=== PATIENT | female | born 1970 | race Caucasian/White ===

== ENCOUNTER 2017-06-22 13:13 | Emergency (ER) | payer OTHER ==
[~2017-06-22] VITALS: Wt 87.1 kg
[~2017-06-22 13:13] MED LIST: HYDROCODONE BIT1 T11 PO; PAXIL20 M1 PO; PREDNISONE50 MG PO; VICODIN 5-3001 EACH PO; XANAX0.25 MG PO; ZITHROMAX250 MG PO
== END 2017-06-22 14:46 | disposition home or self-care (01) ==
LOC: ED 13:13
DX: Z00.00 Encounter for general adult medical examination without abnormal findings (principal); Z88.1 Allergy status to other antibiotic agents; Z88.0 Allergy status to penicillin; Z91.013 Allergy to seafood; F17.210 Nicotine dependence, cigarettes, uncomplicated; Z72.89 Other problems related to lifestyle

== ENCOUNTER → 2018-03-12 | Outpatient (CLI) | payer OTHER | END | disposition home or self-care (01) | LOC: MAMMO 16:25 | DX: Z12.31 Encounter for screening mammogram for malignant neoplasm of breast (principal) ==

== ENCOUNTER 2018-05-26 16:52 | Emergency (ER) | payer OTHER ==
[~2018-05-26] VITALS: Ht 175.2 cm; Wt 90.7 kg
[2018-05-26] MEDS ORDERED: MEDROL DOSEPAK4 MG PO (17:22)
== END 2018-05-26 17:28 | disposition home or self-care (01) ==
LOC: ED 16:52
DX: G89.29 Other chronic pain (principal); M54.5 Low back pain; Z88.0 Allergy status to penicillin; Z88.1 Allergy status to other antibiotic agents; Z88.8 Allergy status to other drugs, medicaments and biological substances; Z91.013 Allergy to seafood; Z79.899 Other long term (current) drug therapy

== ENCOUNTER 2020-03-28 16:58 | Emergency (ER) | payer SELFPAY ==
[~2020-03-28] VITALS: Ht 368.3 cm; Wt 86.2 kg
[~2020-03-28 16:58] MED LIST changes: +MEDROL DOSEPAK4 MG PO
== END 2020-03-28 17:25 | disposition left against medical advice (07) ==
LOC: ED 16:58
DX: M54.5 Low back pain (principal); Z88.0 Allergy status to penicillin; Z88.2 Allergy status to sulfonamides; Z88.8 Allergy status to other drugs, medicaments and biological substances; Z91.013 Allergy to seafood; Z53.29 Procedure and treatment not carried out because of patient's decision for other reasons

== ENCOUNTER → 2020-03-29 | Outpatient (CLI) | payer SELFPAY | END | disposition home or self-care (01) | LOC: RAD 10:23 | DX: M41.84 Other forms of scoliosis, thoracic region (principal); M25.78 Osteophyte, vertebrae ==

== ENCOUNTER 2020-05-10 09:58 | Emergency (ER) | payer SELFPAY ==
[~2020-05-10] VITALS: Ht 172.7 cm; Wt 86.2 kg
== END 2020-05-10 12:09 | disposition home or self-care (01) ==
LOC: ED 09:58
DX: S92.001A Unspecified fracture of right calcaneus, initial encounter for closed fracture (principal); F32.9 Major depressive disorder, single episode, unspecified; F41.9 Anxiety disorder, unspecified; I10 Essential (primary) hypertension; F17.200 Nicotine dependence, unspecified, uncomplicated; Z88.0 Allergy status to penicillin; Z88.8 Allergy status to other drugs, medicaments and biological substances; Z88.2 Allergy status to sulfonamides; Z79.899 Other long term (current) drug therapy; X58.XXXA Exposure to other specified factors, initial encounter; Y93.89 Activity, other specified; Y92.89 Other specified places as the place of occurrence of the external cause; Y99.8 Other external cause status

== ENCOUNTER 2021-07-14 12:37 | Emergency (ER) | payer SELFPAY ==
[~2021-07-14] VITALS: Ht 172.7 cm; Wt 86.2 kg
== END 2021-07-14 16:32 | disposition left against medical advice (07) ==
LOC: ED 12:37
DX: R51.9 Headache, unspecified (principal); R05.9 Cough, unspecified; R09.81 Nasal congestion; Z53.21 Procedure and treatment not carried out due to patient leaving prior to being seen by health care provider

== ENCOUNTER → 2021-07-14 | Outpatient (CLI) | payer OTHER | END | disposition home or self-care (01) | LOC: COVID19 16:45 | PROVIDERS: ATTEND Internal Medicine | DX: U07.1 COVID-19 (principal) ==

== ENCOUNTER → 2021-07-29 | Outpatient (CLI) | payer OTHER | END | disposition home or self-care (01) | LOC: COVID19 16:07 | PROVIDERS: ATTEND Internal Medicine | DX: U07.1 COVID-19 (principal) ==

== ENCOUNTER 2021-12-29 19:21 | Emergency (ER) | payer SELFPAY ==
[~2021-12-29] VITALS: Ht 172.7 cm; Wt 90.7 kg
[2021-12-29] MEDS ORDERED: HYDROCODON-ACE1 EACH PO (21:53)
== END 2021-12-29 21:59 | disposition home or self-care (01) ==
LOC: ED 19:21
DX: S82.891A Other fracture of right lower leg, initial encounter for closed fracture (principal); M79.671 Pain in right foot; Z88.0 Allergy status to penicillin; Z88.1 Allergy status to other antibiotic agents; Z88.8 Allergy status to other drugs, medicaments and biological substances; Z91.013 Allergy to seafood; Z79.899 Other long term (current) drug therapy; X50.1XXA Overexertion from prolonged static or awkward postures, initial encounter; Y93.89 Activity, other specified; Y92.89 Other specified places as the place of occurrence of the external cause; Y99.8 Other external cause status

== ENCOUNTER → 2022-05-04 | Outpatient (CLI) | payer MEDICAID ==
[~2022-05-04] MED LIST changes: +HYDROCODON-ACE1 EACH PO
== END | disposition home or self-care (01) ==
LOC: RAD 13:10 → MAMMO 14:00
PROVIDERS: ATTEND Internal Medicine
DX: Z12.31 Encounter for screening mammogram for malignant neoplasm of breast (principal); M85.852 Other specified disorders of bone density and structure, left thigh; N63.11 Unspecified lump in the right breast, upper outer quadrant; N63.21 Unspecified lump in the left breast, upper outer quadrant

== ENCOUNTER 2022-07-13 19:59 | Emergency (ER) | payer MEDICAID ==
[~2022-07-13] VITALS: Ht 177.8 cm; Wt 86.2 kg
== END 2022-07-13 22:45 | disposition home or self-care (01) ==
LOC: ED 19:59
DX: S01.112A Laceration without foreign body of left eyelid and periocular area, initial encounter (principal); Z98.890 Other specified postprocedural states; Z79.899 Other long term (current) drug therapy; Z88.0 Allergy status to penicillin; Z88.2 Allergy status to sulfonamides; Z88.8 Allergy status to other drugs, medicaments and biological substances; Z91.013 Allergy to seafood; Z88.1 Allergy status to other antibiotic agents; W22.8XXA Striking against or struck by other objects, initial encounter; Y93.89 Activity, other specified; Y92.89 Other specified places as the place of occurrence of the external cause; Y99.8 Other external cause status

== ENCOUNTER → 2022-07-19 | Outpatient (CLI) | payer MEDICAID | END | disposition home or self-care (01) | LOC: CT 08:00 | PROVIDERS: ATTEND Physician Assistant | DX: S82.851D Displaced trimalleolar fracture of right lower leg, subsequent encounter for closed fracture with routine healing (principal); M85.861 Other specified disorders of bone density and structure, right lower leg; M76.61 Achilles tendinitis, right leg; X58.XXXD Exposure to other specified factors, subsequent encounter ==

== ENCOUNTER 2022-07-23 11:48 | Emergency (ER) | payer MEDICAID ==
[~2022-07-23] VITALS: Wt 86.2 kg
== END 2022-07-23 12:45 | disposition home or self-care (01) ==
LOC: ED 11:48
DX: S01.112D Laceration without foreign body of left eyelid and periocular area, subsequent encounter (principal); Z48.02 Encounter for removal of sutures; Z79.899 Other long term (current) drug therapy; Z98.890 Other specified postprocedural states; Z91.013 Allergy to seafood; Z88.1 Allergy status to other antibiotic agents; Z88.0 Allergy status to penicillin; Z88.8 Allergy status to other drugs, medicaments and biological substances; X58.XXXD Exposure to other specified factors, subsequent encounter

== ENCOUNTER → 2023-02-05 | Outpatient (CLI) | payer OTHER | END | disposition home or self-care (01) | LOC: RAD 15:43 | PROVIDERS: ATTEND Physician Assistant | DX: M79.672 Pain in left foot (principal) ==

== ENCOUNTER → 2024-01-07 | Outpatient (CLI) | payer OTHER | END | disposition home or self-care (01) | LOC: RAD 12-31 08:30 | PROVIDERS: ATTEND Internal Medicine | DX: Z12.31 Encounter for screening mammogram for malignant neoplasm of breast (principal); Z78.0 Asymptomatic menopausal state ==

== ENCOUNTER 2024-04-07 10:06 | Emergency (ER) | payer OTHER ==
[~2024-04-07] VITALS: Ht 177.8 cm; Wt 94.8 kg
[2024-04-07] MEDS ORDERED: AMLODIPINE BES2.5 MG PO (10:24)
[2024-04-07] MEDS ORDERED: OMEPRAZOLE MAGN20 MG PO (10:24)
[2024-04-07] MEDS ORDERED: CYMBALTA30 MG PO (10:25)
[2024-04-07] MEDS ORDERED: OYSTER SHELL 51 EAC5 PO (10:25)
[2024-04-07] MEDS ORDERED: GABAPENTIN600 MG PO (10:25)
[2024-04-07] MEDS ORDERED: LORazepam 0.5 MG TAB PO ONE (10:45)
[2024-04-07 11:13] LABS: BASO # 0.1 10*3/uL (0.0-0.1); BASO % 0.9 % (0.0-1.0); EOS # 0.1 10*3/uL (0.0-0.4); EOS % 1.3 % (1.0-4.0); HEMATOCRIT 43.6 % (37.0-47.0); LYMPH # 1.3 10*3/uL (1.3-4.4); LYMPH % 12.9 % (27.0-41.0); MEAN CELL VOLUME 96.7 fl (81.0-99.0); MEAN CORPUSCULAR HGB 32.2 pg (27.0-31.0); MEAN CORPUSCULAR HGB CONC 33.3 g/dl (33.0-37.0); MEAN PLATELET VOLUME 10.5 fl (9.6-12.3); MONO # 1.1 10*3/uL (0.1-1.0); MONO % 10.2 % (3.0-9.0); NEUT # 7.6 10*3/uL (2.3-7.9); NEUT % 74.3 % (47.0-73.0); PLATELET COUNT AUTOMATED 264 10*3/uL (130-400); RED BLOOD COUNT 4.51 10*6/uL (4.10-5.10); RED CELL DISTRI WIDTH 17.1 % (0-14.5); WHITE BLOOD COUNT 10.3 10*3/uL (4.8-10.8)
[2024-04-07 11:32] LABS: ALKALINE PHOSPHATASE 83 U/L (46-116); BUN 9 mg/dl (9-23); CHLORIDE 103 mmol/L (98-107); POTASSIUM 4.6 mmol/L (3.4-5.1); SGPT/ALT 216 U/L (5-49); TOTAL PROTEIN 7.6 gm/dL (6.0-8.0)
== END 2024-04-07 12:09 | disposition home or self-care (01) ==
LOC: ED 10:06
PROVIDERS: Internal Medicine
DX: F43.0 Acute stress reaction (principal); F32.A Depression, unspecified; F41.9 Anxiety disorder, unspecified; I10 Essential (primary) hypertension; R11.0 Nausea; Z88.0 Allergy status to penicillin; Z88.2 Allergy status to sulfonamides; Z88.1 Allergy status to other antibiotic agents; Z91.013 Allergy to seafood; Z88.8 Allergy status to other drugs, medicaments and biological substances; Z98.890 Other specified postprocedural states; Z87.891 Personal history of nicotine dependence

== ENCOUNTER 2024-05-01 08:16 | Inpatient (IN) | payer OTHER ==
[~2024-05-01] VITALS: Ht 177.8 cm; Wt 95.3 kg
[2024-05-01] VITALS (13 sets, daily range): BP systolic 110–160; BP diastolic 75–99
[~2024-05-01 08:16] MED LIST changes: +AMLODIPINE BES2.5 MG PO; +CYMBALTA30 MG PO; +GABAPENTIN600 MG PO; +OMEPRAZOLE MAGN20 MG PO; +OYSTER SHELL 51 EAC5 PO
[2024-05-01] MEDS ORDERED: CARAFATE1 G1 PO (09:44)
[2024-05-01] MEDS ORDERED: MORPHINE Sulfate 2 MG/ML SYR IV ONE (09:55)
[2024-05-01] MEDS ORDERED: SODIUM CHLORIDE 0.9% 1,000 ML IV ONE (09:55)
[2024-05-01 10:07] LABS: BASO % 0.3 % (0.0-1.0); EOS % 0.2 % (1.0-4.0); HEMATOCRIT 48.7 % (37.0-47.0); LYMPH # 0.8 10*3/uL (1.3-4.4); LYMPH % 7.8 % (27.0-41.0); MEAN CORPUSCULAR HGB 32.9 pg (27.0-31.0); MEAN CORPUSCULAR HGB CONC 33.3 g/dl (33.0-37.0); MEAN PLATELET VOLUME 10.5 fl (9.6-12.3); MONO # 0.7 10*3/uL (0.1-1.0); NEUT # 8.8 10*3/uL (2.3-7.9); NEUT % 84.2 % (47.0-73.0); PLATELET COUNT AUTOMATED 282 10*3/uL (130-400); RED BLOOD COUNT 4.92 10*6/uL (4.10-5.10); RED CELL DISTRI WIDTH 15.9 % (0-14.5); WHITE BLOOD COUNT 10.5 10*3/uL (4.8-10.8)
[2024-05-01] MEDS ORDERED: Ondansetron Hydrochloride 4 MG/2 ML VIAL IV ONE (10:15)
[2024-05-01 10:24] LABS: ALKALINE PHOSPHATASE 87 U/L (46-116); BUN 8 mg/dl (9-23); CHLORIDE 99 mmol/L (98-107); LIPASE 40 U/L (12-53); POTASSIUM 3.2 mmol/L (3.4-5.1); SGPT/ALT 119 U/L (5-49)
[2024-05-01] MEDS ORDERED: Ceftriaxone Sodium 1 GM/10 ML SYR IV ONE (10:50)
[2024-05-01] MEDS ORDERED: METRONIDAZOLE 100 ML IV ONE (10:50)
[2024-05-01] MEDS ORDERED: TICAGRELOR 90 MG TABLET PO ONE (11:00)
[2024-05-01] MEDS ORDERED: PAROXETINE HCL30 MG PO (11:24)
[2024-05-01] MEDS ORDERED: OMEPRAZOLE MAGN20 MG PO (11:24)
[2024-05-01] MEDS ORDERED: TYLENOL325 M2 PO (11:25)
[2024-05-01] MEDS ORDERED: Ondansetron Hydrochloride 4 MG/2 ML VIAL IV PRN (12:00)
[2024-05-01] MEDS ORDERED: BISACODYL 10 MG SUPP R PRN (12:00)
[2024-05-01] MEDS ORDERED: BISACODYL 5 MG TAB PO PRN (12:00)
[2024-05-01] MEDS ORDERED: Magnesium Hydroxide 30 ML UDC PO PRN (12:00)
[2024-05-01] MEDS ORDERED: MORPHINE Sulfate 2 MG/ML SYR IV PRN (12:00)
[2024-05-01] MEDS ORDERED: ACETAMINOPHEN 650 MG SUPP R PRN (12:00)
[2024-05-01] MEDS ORDERED: ACETAMINOPHEN 325 MG TAB PO PRN (12:00)
[2024-05-01] MEDS ORDERED: Lactated Ringer's Solution 1,000 ML IV ONE (12:48)
[2024-05-01] MEDS ORDERED: BUPIVACAINE 0.5% 30 ML IV ONE (13:08)
[2024-05-01] MEDS ORDERED: LORazepam 2 MG/ML VIAL IV PRN (14:30)
[2024-05-01] MEDS ORDERED: HYDROmorphONE Hydrochloride 0.5 MG/0.5 ML SYRINGE IV ONE (15:10)
[2024-05-01] MEDS ORDERED: HYDROmorphONE Hydrochloride 0.5 MG/0.5 ML SYRINGE ONE (15:22)
[2024-05-01] MEDS ORDERED: LORazepam 1 MG TAB PO SCH (16:00)
[2024-05-01] MEDS ORDERED: Midazolam Hydrochloride 2 MG/2 ML VIAL IV ONE (16:37)
[2024-05-01] MEDS ORDERED: fentaNYL CITRATE 100 MCG/2 ML VIAL IV ONE (16:37)
[2024-05-01] MEDS ORDERED: Lidocaine Hydrochloride 2% 5 ML SDV IM ONE (16:37)
[2024-05-01] MEDS ORDERED: PROPOFOL 200 MG/20 ML VIAL IV ONE (16:37)
[2024-05-01] MEDS ORDERED: Succinylcholine Chloride 200 MG/10 ML SYRINGE IV ONE (16:37)
[2024-05-01] MEDS ORDERED: ROCURONIUM BROMIDE 50 MG/5 ML SYRINGE IV ONE (16:37)
[2024-05-01] MEDS ORDERED: Dexamethasone Sodium Phospha 4 MG/ML VIAL IV ONE (16:37)
[2024-05-01] MEDS ORDERED: SUGAMMADEX SODIUM 200 MG/2 ML VIAL IV ONE (16:37)
[2024-05-01] MEDS ORDERED: OMEPRAZOLE 20 MG CAP PO SCH (18:00)
[2024-05-01] MEDS ORDERED: SUCRALFATE 1 GM TAB PO SCH (18:00)
[2024-05-01] MEDS ORDERED: GABAPENTIN 600 MG TAB PO SCH (22:00)
[2024-05-01] MEDS ORDERED: METRONIDAZOLE 100 ML IV SCH (22:00)
[2024-05-02 01:52] VITALS: BP 161/84
[2024-05-02 05:42] VITALS: BP 124/78
[2024-05-02 06:24] LABS: BASO % 0.1 % (0.0-1.0); HEMATOCRIT 39.2 % (37.0-47.0); LYMPH # 1.2 10*3/uL (1.3-4.4); LYMPH % 8.6 % (27.0-41.0); MEAN CELL VOLUME 99.7 fl (81.0-99.0); MEAN CORPUSCULAR HGB 33.3 pg (27.0-31.0); MEAN CORPUSCULAR HGB CONC 33.4 g/dl (33.0-37.0); MEAN PLATELET VOLUME 10.8 fl (9.6-12.3); MONO # 1.3 10*3/uL (0.1-1.0); MONO % 9.7 % (3.0-9.0); NEUT # 11.1 10*3/uL (2.3-7.9); NEUT % 81.4 % (47.0-73.0); PLATELET COUNT AUTOMATED 204 10*3/uL (130-400); RED BLOOD COUNT 3.93 10*6/uL (4.10-5.10); RED CELL DISTRI WIDTH 15.8 % (0-14.5); WHITE BLOOD COUNT 13.6 10*3/uL (4.8-10.8)
[2024-05-02 07:07] LABS: ALKALINE PHOSPHATASE 56 U/L (46-116); BUN 7 mg/dl (9-23); CHLORIDE 104 mmol/L (98-107); FREE T4 1.87 ng/dl (0.89-1.76); SGPT/ALT 68 U/L (5-49); TOTAL PROTEIN 6.5 gm/dL (6.0-8.0)
[2024-05-02] MEDS ORDERED: COLACE100 MG PO (08:11)
[2024-05-02] MEDS ORDERED: CIPRO500 MG PO (08:11)
[2024-05-02] MEDS ORDERED: HYDROCODONE-AC1 EAC1 PO (08:11)
[2024-05-02] MEDS ORDERED: METRONIDAZOLE500 M1 PO (08:11)
[2024-05-02] MEDS ORDERED: Ciprofloxacin Hydrochloride 250 MG TAB PO ONE (09:15)
[2024-05-02] MEDS ORDERED: Ceftriaxone Sodium 1 GM in SYRINGE INFUSION 10 ML IV SCH (10:00)
[2024-05-02] MEDS ORDERED: Paroxetine Hydrochloride 10 MG TAB PO SCH (10:00)
[2024-05-02] MEDS ORDERED: amLODIPine besylate 2.5 MG TAB PO SCH (10:00)
[2024-05-02 11:37] LABS: BILIRUBIN Negative (Negative); BLOOD Negative (Negative); CLARITY Clear (Clear); COLOR Dark Yellow (Yellow); GLUCOSE Negative (Negative); KETONE Trace (Negative); LEUKO ESTERASE Trace (Negative); NITRITE Negative (Negative); PH 6.5 (4.5-8.0)
[2024-05-02 11:47] LABS: EPITHELIAL CELLS TNTC
[2024-05-02] MEDS ORDERED: LORazepam 1 MG TAB PO SCH (18:00)
[2024-05-03] MEDS ORDERED: LORazepam 1 MG TAB PO PRN
== END 2024-05-02 12:48 | disposition home or self-care (01) | DRG 854 ==
LOC: ED 08:16 → EDHOLD 11:01
PROVIDERS: Internal Medicine; Student in an Organized Health Care Education/Training Program; ADMIT Student in an Organized Health Care Education/Training Program; ATTEND Student in an Organized Health Care Education/Training Program
PROC: 0DTJ4ZZ Resection of Appendix, Percutaneous Endoscopic Approach (ICD-10-PCS; principal; 2024-05-01)
PROC: 0DNW4ZZ Release Peritoneum, Percutaneous Endoscopic Approach (ICD-10-PCS; 2024-05-01)
DX: A41.9 Sepsis, unspecified organism (principal); E87.1 Hypo-osmolality and hyponatremia; K35.30 Acute appendicitis with localized peritonitis, without perforation or gangrene; E87.20 Acidosis, unspecified; M41.9 Scoliosis, unspecified; F10.10 Alcohol abuse, uncomplicated; E87.6 Hypokalemia; R74.01 Elevation of levels of liver transaminase levels; I10 Essential (primary) hypertension; G89.29 Other chronic pain; M54.50 Low back pain, unspecified; F32.A Depression, unspecified; K21.9 Gastro-esophageal reflux disease without esophagitis; F17.210 Nicotine dependence, cigarettes, uncomplicated; M81.0 Age-related osteoporosis without current pathological fracture; R65.20 Severe sepsis without septic shock; R73.9 Hyperglycemia, unspecified; K76.0 Fatty (change of) liver, not elsewhere classified; Z71.6 Tobacco abuse counseling; Z88.2 Allergy status to sulfonamides; Z88.8 Allergy status to other drugs, medicaments and biological substances; Z88.1 Allergy status to other antibiotic agents; Z88.0 Allergy status to penicillin; Z91.013 Allergy to seafood

== ENCOUNTER → 2024-08-15 | Outpatient (CLI) | payer OTHER ==
[~2024-08-15] MED LIST changes: +CARAFATE1 G1 PO; +CIPRO500 MG PO; +COLACE100 MG PO; +HYDROCODONE-AC1 EAC1 PO; +METRONIDAZOLE500 M1 PO; +PAROXETINE HCL30 MG PO; +TYLENOL325 M2 PO
== END | disposition home or self-care (01) ==
LOC: RAD 08-14 12:40
PROVIDERS: ATTEND Internal Medicine
DX: M19.071 Primary osteoarthritis, right ankle and foot (principal); M77.32 Calcaneal spur, left foot; M77.31 Calcaneal spur, right foot; M25.572 Pain in left ankle and joints of left foot; M25.571 Pain in right ankle and joints of right foot

== ENCOUNTER 2025-06-25 18:45 | Emergency (ER) | payer SELFPAY ==
[~2025-06-25] VITALS: Ht 175.2 cm; Wt 89.8 kg
[2025-06-25] MEDS ORDERED: Acetaminophen/Oxycodone 5 MG/325 MG TABLET PO ONE (19:00)
[2025-06-25] MEDS ORDERED: PERCOCET 5-3251 EACH PO (20:47)
== END 2025-06-25 20:44 | disposition home or self-care (01) ==
LOC: ED 18:45
DX: S82.401A Unspecified fracture of shaft of right fibula, initial encounter for closed fracture (principal); K21.9 Gastro-esophageal reflux disease without esophagitis; F32.A Depression, unspecified; F41.9 Anxiety disorder, unspecified; I10 Essential (primary) hypertension; F12.90 Cannabis use, unspecified, uncomplicated; Z88.0 Allergy status to penicillin; Z88.1 Allergy status to other antibiotic agents; Z88.2 Allergy status to sulfonamides; Z98.890 Other specified postprocedural states; Z88.8 Allergy status to other drugs, medicaments and biological substances; Z91.013 Allergy to seafood

== ENCOUNTER → 2025-06-26 | Outpatient (CLI) | payer SELFPAY ==
[~2025-06-26] MED LIST changes: +PERCOCET 5-3251 EACH PO
== END | disposition home or self-care (01) ==
LOC: RAD 12:43
PROVIDERS: ATTEND Orthopaedic Surgery
DX: S82.65XA Nondisplaced fracture of lateral malleolus of left fibula, initial encounter for closed fracture (principal); S93.422A Sprain of deltoid ligament of left ankle, initial encounter; X58.XXXA Exposure to other specified factors, initial encounter; Y93.89 Activity, other specified; Y92.89 Other specified places as the place of occurrence of the external cause; Y99.8 Other external cause status

== ENCOUNTER → 2025-06-30 | Day surgery (SDC) | payer SELFPAY ==
[~2025-06-30] VITALS: Ht 177.8 cm; Wt 90.7 kg
[~2025-06-30] MED LIST changes: +ACETAMINOPHEN 100 ML IV ONE; +Bupivacaine Hydrochloride/Ep2 30 ML VIAL ONE; +Lactated Ringer's Solution 1,000 ML IV ONE; +Lidocaine Hydrochloride 5 ML VIAL IV ONE; +Midazolam Hydrochloride 2 MG/2 ML VIAL IV ONE; +Ondansetron Hydrochloride 4 MG/2 ML VIAL IV ONE; +PROPOFOL 200 MG/20 ML VIAL IV ONE; +SEVOFLURANE 250 ML BOT INH ONE; +SODIUM CHLORIDE 0.9% 100 ML IV ONE; +ceFAZolin sodium/sodium chlor 20 ML IV ONE; +fentaNYL CITRATE/PF 50 MCG/ML SYRINGE IV PRN; +fentaNYL CITRATE/PF 50 MCG/ML SYRINGE ONE
[2025-06-30 09:45] VITALS: BP 132/86
[2025-06-30 10:37] LABS: BUN 7 mg/dl (9-23)
[2025-06-30 13:06] VITALS: BP 118/75
[2025-06-30 13:21] VITALS: BP 119/81
[2025-06-30 13:36] VITALS: BP 118/82
[2025-06-30 13:51] VITALS: BP 120/81
[2025-06-30 14:00] VITALS: BP 120/74
== END | disposition home or self-care (01) ==
LOC: SDC 06-29 12:30
PROVIDERS: ATTEND Orthopaedic Surgery
DX: S82.62XA Displaced fracture of lateral malleolus of left fibula, initial encounter for closed fracture (principal); S93.422A Sprain of deltoid ligament of left ankle, initial encounter; F41.9 Anxiety disorder, unspecified; F32.A Depression, unspecified; M19.90 Unspecified osteoarthritis, unspecified site; M81.0 Age-related osteoporosis without current pathological fracture; I10 Essential (primary) hypertension; K21.9 Gastro-esophageal reflux disease without esophagitis; M85.80 Other specified disorders of bone density and structure, unspecified site; F17.200 Nicotine dependence, unspecified, uncomplicated; Z98.890 Other specified postprocedural states; Z90.49 Acquired absence of other specified parts of digestive tract; Z79.899 Other long term (current) drug therapy; Z90.710 Acquired absence of both cervix and uterus; Z88.0 Allergy status to penicillin; Z88.2 Allergy status to sulfonamides; Z88.8 Allergy status to other drugs, medicaments and biological substances; X58.XXXA Exposure to other specified factors, initial encounter; Y93.89 Activity, other specified; Y92.89 Other specified places as the place of occurrence of the external cause; Y99.8 Other external cause status

== ENCOUNTER → 2025-07-13 | Outpatient (CLI) | payer SELFPAY ==
[~2025-07-13] MED LIST changes: -ACETAMINOPHEN 100 ML IV ONE; -Bupivacaine Hydrochloride/Ep2 30 ML VIAL ONE; -Lactated Ringer's Solution 1,000 ML IV ONE; -Lidocaine Hydrochloride 5 ML VIAL IV ONE; -Midazolam Hydrochloride 2 MG/2 ML VIAL IV ONE; -Ondansetron Hydrochloride 4 MG/2 ML VIAL IV ONE; -PROPOFOL 200 MG/20 ML VIAL IV ONE; -SEVOFLURANE 250 ML BOT INH ONE; -SODIUM CHLORIDE 0.9% 100 ML IV ONE; -ceFAZolin sodium/sodium chlor 20 ML IV ONE; -fentaNYL CITRATE/PF 50 MCG/ML SYRINGE IV PRN; -fentaNYL CITRATE/PF 50 MCG/ML SYRINGE ONE
== END | disposition home or self-care (01) ==
LOC: ORTHO 08:39
PROVIDERS: ATTEND Orthopaedic Surgery
DX: S82.65XA Nondisplaced fracture of lateral malleolus of left fibula, initial encounter for closed fracture (principal); X58.XXXA Exposure to other specified factors, initial encounter; Y93.89 Activity, other specified; Y92.89 Other specified places as the place of occurrence of the external cause; Y99.8 Other external cause status

== ENCOUNTER → 2025-08-03 | Outpatient (CLI) | payer SELFPAY | END | disposition home or self-care (01) | LOC: ORTHO 09:47 | PROVIDERS: ATTEND Orthopaedic Surgery | DX: S82.55XA Nondisplaced fracture of medial malleolus of left tibia, initial encounter for closed fracture (principal); X58.XXXA Exposure to other specified factors, initial encounter; Y93.89 Activity, other specified; Y92.89 Other specified places as the place of occurrence of the external cause; Y99.8 Other external cause status ==